=== PATIENT | male | born 1970 | race Caucasian/White ===

== ENCOUNTER 2016-12-22 13:02 | Day surgery (SDC) | payer OTHER, BC ==
[~2016-12-22] VITALS: Ht 185.4 cm; Wt 59.0 kg
[~2016-12-22 13:02] MED LIST: CELEBREX200 MG PO; FIORICET WI1 CAPSULE PO; FROVA2.5 MG PO; TOPICAINE113 GM TP; TRAMADOL HCL50 MG PO; VOLTAREN 1% GE100 GM TP; ZANAFLEX2 M1 PO
== END 2016-12-22 15:09 | disposition home or self-care (01) ==
LOC: PAIN 13:02 → SDC 13:15 → PAIN 13:15
DX: M47.896 Other spondylosis, lumbar region (principal); M51.36 Other intervertebral disc degeneration, lumbar region; F17.200 Nicotine dependence, unspecified, uncomplicated; F41.1 Generalized anxiety disorder
CPT/HCPCS: J1030; J2250; J3010; S0020

== ENCOUNTER 2017-03-15 13:25 | Day surgery (SDC) | payer OTHER, BC ==
[~2017-03-15] VITALS: Ht 185.4 cm; Wt 61.7 kg
[~2017-03-15 13:25] MED LIST changes: +FLECTOR 1.3%1 PATC1 TD
== END 2017-03-15 15:20 | disposition home or self-care (01) ==
LOC: PAIN 13:25
DX: M47.816 Spondylosis without myelopathy or radiculopathy, lumbar region (principal); M54.5 Low back pain; M51.36 Other intervertebral disc degeneration, lumbar region; M17.12 Unilateral primary osteoarthritis, left knee; M62.838 Other muscle spasm; F17.200 Nicotine dependence, unspecified, uncomplicated; Z88.0 Allergy status to penicillin
CPT/HCPCS: J1030; J2250; J3010; S0020

== ENCOUNTER 2017-03-30 12:49 | Day surgery (SDC) | payer OTHER, BC ==
[~2017-03-30] VITALS: Ht 185.4 cm; Wt 61.2 kg
[~2017-03-30 12:49] MED LIST changes: +EXCEDRIN MIGRA1 EAC3 PO
== END 2017-03-30 14:40 | disposition home or self-care (01) ==
LOC: PAIN 12:49 → SDC 13:15 → PAIN 14:40
PROC: 015B3ZZ Destruction of Lumbar Nerve, Percutaneous Approach (ICD-10-PCS; principal; 2017-03-30)
DX: M47.816 Spondylosis without myelopathy or radiculopathy, lumbar region (principal); F41.9 Anxiety disorder, unspecified; F17.200 Nicotine dependence, unspecified, uncomplicated; M62.838 Other muscle spasm; M51.36 Other intervertebral disc degeneration, lumbar region; M54.5 Low back pain; M17.12 Unilateral primary osteoarthritis, left knee; Z88.0 Allergy status to penicillin; Z68.1 Body mass index [BMI] 19.9 or less, adult
CPT/HCPCS: J1030; S0020

== ENCOUNTER 2017-06-07 19:47 | Emergency (ER) | payer BC ==
[~2017-06-07] VITALS: Ht 185.4 cm; Wt 61.0 kg
[2017-06-07] MEDS ORDERED: NORCO 5/3251 TABLET PO (23:50)
[2017-06-08 00:12] VITALS: BP 111/67
== END 2017-06-08 00:25 | disposition home or self-care (01) ==
LOC: EME 19:47
PROC: 2W3TX1Z Immobilization of Left Foot using Splint (ICD-10-PCS; principal; 2017-06-07)
DX: S92.012A Displaced fracture of body of left calcaneus, initial encounter for closed fracture (principal); S82.62XA Displaced fracture of lateral malleolus of left fibula, initial encounter for closed fracture; W11.XXXA Fall on and from ladder, initial encounter; G43.909 Migraine, unspecified, not intractable, without status migrainosus; F17.200 Nicotine dependence, unspecified, uncomplicated
CPT/HCPCS: 73610; 73630; 73700; 99281; 99284; J3010

== ENCOUNTER 2017-08-24 14:01 | Day surgery (SDC) | payer OTHER, BC ==
[~2017-08-24] VITALS: Ht 185.4 cm; Wt 61.2 kg
[~2017-08-24 14:01] MED LIST changes: +FIORICET 50-301 EACH PO; +NORCO 5/3251 TABLET PO
== END 2017-08-24 16:10 | disposition home or self-care (01) ==
LOC: PAIN 14:01 → SDC 14:30 → PAIN 14:30
DX: M47.816 Spondylosis without myelopathy or radiculopathy, lumbar region (principal); M54.5 Low back pain; G89.29 Other chronic pain; M51.36 Other intervertebral disc degeneration, lumbar region; F17.200 Nicotine dependence, unspecified, uncomplicated; M62.838 Other muscle spasm; Z88.0 Allergy status to penicillin; Z79.891 Long term (current) use of opiate analgesic
CPT/HCPCS: J1030; J2250; J3010; S0020

== ENCOUNTER 2018-06-23 09:42 | Day surgery (SDC) | payer BC ==
[~2018-06-23] VITALS: Ht 185.4 cm; Wt 61.2 kg
[~2018-06-23 09:42] MED LIST changes: -FIORICET 50-301 EACH PO; +FIORINAL1 TABLET PO; +LIDOCAINE700 MG TP; +OXYCODONE HCL10 MG PO; +SOMA350 MG PO
== END 2018-06-23 12:15 | disposition home or self-care (01) ==
LOC: PAIN 09:42
DX: M47.816 Spondylosis without myelopathy or radiculopathy, lumbar region (principal); M51.36 Other intervertebral disc degeneration, lumbar region; M17.12 Unilateral primary osteoarthritis, left knee; F17.200 Nicotine dependence, unspecified, uncomplicated; Z79.891 Long term (current) use of opiate analgesic; Z88.0 Allergy status to penicillin

== ENCOUNTER 2018-06-30 09:25 | Day surgery (SDC) | payer BC ==
[~2018-06-30] VITALS: Ht 185.4 cm; Wt 59.0 kg
== END 2018-06-30 11:32 | disposition home or self-care (01) ==
LOC: PAIN 09:25
DX: M47.816 Spondylosis without myelopathy or radiculopathy, lumbar region (principal); M51.36 Other intervertebral disc degeneration, lumbar region; M17.12 Unilateral primary osteoarthritis, left knee; F17.200 Nicotine dependence, unspecified, uncomplicated
CPT/HCPCS: J1030; J2250; J3010; S0020